=== PATIENT | female | born 1965 | race Hispanic/Latino ===

== ENCOUNTER 2019-03-27 05:59 | Emergency (ER) | payer BC, OTHER ==
[2019-03-27] MEDS ORDERED: IBUPROFEN 400 MG TABLET ONE (06:31)
[2019-03-27] MEDS ORDERED: NEOMY SULF/BACITRA/POLYMYXIN B 1 EACH PACKET TP ONE (06:31)
[2019-03-27] MEDS ORDERED: TETANUS/DIPHTHERIA TOXOID [ADULT] 0.5 ML VIAL IM ONE (06:43)
== END 2019-03-27 08:52 | disposition home or self-care (01) ==
LOC: EDH 05:59
DX: S67.22XA Crushing injury of left hand, initial encounter (principal); S57.82XA Crushing injury of left forearm, initial encounter; S00.01XA Abrasion of scalp, initial encounter; S00.412A Abrasion of left ear, initial encounter; Z90.89 Acquired absence of other organs; Z98.890 Other specified postprocedural states; W11.XXXA Fall on and from ladder, initial encounter; Y93.89 Activity, other specified; Y92.89 Other specified places as the place of occurrence of the external cause; Y99.8 Other external cause status
CPT/HCPCS: 29125; 73090; 73110; 73130; 90471; 90714